=== PATIENT | female | born 1960 | race Caucasian/White ===

== ENCOUNTER 2017-09-06 12:51 | Emergency (ER) | payer OTHER | END 2017-09-06 15:30 | disposition home or self-care (01) | LOC: FTE 12:51 | DX: M25.561 Pain in right knee (principal); I10 Essential (primary) hypertension; Z98.61 Coronary angioplasty status | CPT/HCPCS: 73562; 99283-25 ==

== ENCOUNTER 2018-05-21 17:09 | Observation (INO) | payer OTHER ==
[2018-05-21 21:08] LABS: ADD MAN DIFF? NO
[2018-05-21 21:12] LABS: WHITE BLOOD COUNT 8.9 10^3/ul (4.8-10.8)
[2018-05-21 21:12] LABS: BASOPHILS % 0.3 % (0.0-2.0); EOSINOPHILS # 0.1 10^3/ul (0.0-0.5); EOSINOPHILS % 0.8 % (0.0-7.0); HEMATOCRIT 39.4 % (37.0-47.0); HEMOGLOBIN 13.5 g/dl (12.0-16.0); LYMPHOCYTES # 2.8 10^3/ul (0.8-2.9); LYMPHOCYTES % 31.7 % (15.0-51.0); MEAN CORPUSCULAR HEMOGLOBIN 29.9 pg (29.0-33.0); MEAN CORPUSCULAR HGB CONC 34.3 g/dl (32.0-37.0); MEAN CORPUSCULAR VOLUME 87.2 fl (82.0-101.0); MEAN PLATELET VOLUME 10.1 fl (7.4-10.4); MONOCYTE # 0.4 10^3/ul (0.3-0.9); MONOCYTES % 4.7 % (0.0-11.0); NEUTROPHIL # 5.5 10^3/ul (1.6-7.5); NEUTROPHILS % 62.2 % (39.0-77.0); PLATELET COUNT 274 10^3/UL (140-415); RED BLOOD COUNT 4.52 10^6/ul (4.20-5.40)
[2018-05-21 21:33] LABS: ANION GAP 15 (5-13); BLOOD UREA NITROGEN 11 mg/dl (7-20); CALCIUM 9.7 mg/dl (8.4-10.2); CARBON DIOXIDE 26 mmol/L (21-31); CHLORIDE 100 mmol/L (97-110); CREATININE 0.84 mg/dl (0.44-1.00); Estimated GFR > 60 mL/min (>60); GLUCOSE 96 mg/dl (70-220); POTASSIUM 3.7 mmol/L (3.5-5.1); SODIUM 141 mmol/L (135-144)
[2018-05-21 21:45] LABS: TROPONIN-I < 0.012 ng/ml (0.000-0.120)
[2018-05-21] MEDS: ASPIRIN 325 MG TAB PO (22:11)
[2018-05-21] MEDS: NITROGLYCERIN 2% 1 GM OINT PKT TD (22:12)
[2018-05-21] MEDS ORDERED: BISACODYL (EC) 5 MG TAB PO (22:30)
[2018-05-21] MEDS ORDERED: DOCUSATE SODIUM 100 MG CAP PO (22:30)
[2018-05-21] MEDS ORDERED: hydrALAzine 20 MG INJ IV (22:30)
[2018-05-21] MEDS ORDERED: NACL 0.9% 3 ML SYG IV (22:30)
[2018-05-21] MEDS ORDERED: NITROGLYCERIN (SL) 0.4 MG TAB SL (22:30)
[2018-05-21] MEDS ORDERED: morphine 2 MG INJ IV (22:30)
[2018-05-21] MEDS ORDERED: ONDANSETRON 4 MG INJ IV (22:30)
[2018-05-21] MEDS: ALPRAZOLAM 0.25 MG TAB PO (23:44)
[2018-05-22 03:19] LABS: ADD MAN DIFF? NO
[2018-05-22 03:22] LABS: BASOPHILS % 0.4 % (0.0-2.0); EOSINOPHILS # 0.1 10^3/ul (0.0-0.5); HEMATOCRIT 37.9 % (37.0-47.0); HEMOGLOBIN 12.5 g/dl (12.0-16.0); LYMPHOCYTES # 2.7 10^3/ul (0.8-2.9); LYMPHOCYTES % 29.3 % (15.0-51.0); MEAN CORPUSCULAR HEMOGLOBIN 29.6 pg (29.0-33.0); MEAN CORPUSCULAR VOLUME 89.6 fl (82.0-101.0); MEAN PLATELET VOLUME 9.7 fl (7.4-10.4); MONOCYTE # 0.5 10^3/ul (0.3-0.9); MONOCYTES % 5.4 % (0.0-11.0); NEUTROPHIL # 5.9 10^3/ul (1.6-7.5); NEUTROPHILS % 63.6 % (39.0-77.0); PLATELET COUNT 240 10^3/UL (140-415); RED BLOOD COUNT 4.23 10^6/ul (4.20-5.40); RED CELL DISTRIBUTION WIDTH 13.1 % (11.5-14.5)
[2018-05-22 03:22] LABS: WHITE BLOOD COUNT 9.3 10^3/ul (4.8-10.8)
[2018-05-22 03:30] LABS: HEMOGLOBIN A1C 5.9 % (0-5.9)
[2018-05-22 03:39] LABS: ALANINE AMINOTRANSFERASE 20 IU/L (13-69); ALBUMIN 4.1 g/dl (3.3-4.9); ALBUMIN/GLOBULIN RATIO 1.32; ALKALINE PHOSPHATASE 80 IU/L (42-121); ANION GAP 9 (5-13); ASPARTATE AMINO TRANSFERASE 23 IU/L (15-46); BILIRUBIN,INDIRECT 0.3 mg/dl (0-1.1); BILIRUBIN,TOTAL 0.3 mg/dl (0.2-1.3); BLOOD UREA NITROGEN 11 mg/dl (7-20); CALCIUM 9.7 mg/dl (8.4-10.2); CARBON DIOXIDE 36 mmol/L (21-31); CHLORIDE 100 mmol/L (97-110); CHOL/HDL RATIO 3.8 RATIO; CHOLESTEROL 208 mg/dl (100-200); CREATINE KINASE 51 IU/L (23-200); CREATININE 0.91 mg/dl (0.44-1.00); Estimated GFR > 60 mL/min (>60); GLUCOSE 138 mg/dl (70-220); HDL CHOLESTEROL 54 mg/dl (37-92); LDL CHOLESTEROL,CALCULATED 127 mg/dl; MAGNESIUM 2.2 mg/dl (1.7-2.5); POTASSIUM 3.2 mmol/L (3.5-5.1); SODIUM 145 mmol/L (135-144); TOTAL PROTEIN 7.2 g/dl (6.1-8.1); TRIGLYCERIDES 136 mg/dl (0-149)
[2018-05-22 03:50] LABS: CK INDEX 1.1; CK-MB 0.54 ng/ml (0.0-2.4); TROPONIN-I < 0.012 ng/ml (0.000-0.120)
[2018-05-22] MEDS: ACETAMINOPHEN 325 MG TAB PO (06:25)
[2018-05-22] MEDS ORDERED: ASPIRIN 81 MG TAB PO (09:00)
[2018-05-22] MEDS: CHLORTHALIDONE 25 MG TAB PO (09:57)
[2018-05-22] MEDS: ARIPIPRAZOLE 5 MG TAB PO (09:57)
[2018-05-22] MEDS: ASPIRIN (EC) 81 MG TAB PO (09:57)
[2018-05-22 11:14] LABS: CK INDEX 0.8; CK-MB 0.45 ng/ml (0.0-2.4); CREATINE KINASE 56 IU/L (23-200); TROPONIN-I < 0.012 ng/ml (0.000-0.120)
[2018-05-22 12:21] LABS: B-TYPE NATRIURETIC PEPTIDE < 11 PG/ML (0-125)
[2018-05-22] MEDS: POTASSIUM CHLORIDE (SR) 20 MEQ TAB PO (13:20)
[2018-05-22] MEDS: SUMATRIPTAN 6 MG/0.5 ML INJ SC (14:08)
[2018-05-22] MEDS ORDERED: ATORVASTATIN 10 MG TAB PO (21:00)
[2018-05-22] MEDS ORDERED: NON-FORMULARY/PATIENT OWN MED (Simvastatin* (Zocor*) 20 MG) PO (21:00)
== END 2018-05-22 18:07 | disposition home or self-care (01) ==
LOC: TEL 22:28 → E/R 17:09
DX: R07.89 Other chest pain (principal); I10 Essential (primary) hypertension; E78.5 Hyperlipidemia, unspecified; R73.03 Prediabetes; F32.9 Major depressive disorder, single episode, unspecified; E66.9 Obesity, unspecified; Z68.37 Body mass index [BMI] 37.0-37.9, adult; G43.909 Migraine, unspecified, not intractable, without status migrainosus; Z79.82 Long term (current) use of aspirin
CPT/HCPCS: 36415; 71045; 80048; 80053; 80061; 82550; 82553; 83036; 83735; 83880; 84443; 84484; 85025; 93005; 93306; 99285-25; G0378

== ENCOUNTER 2018-08-12 14:07 | Emergency (ER) | payer OTHER | END 2018-08-12 14:49 | disposition home or self-care (01) | LOC: FTE 14:49 | DX: H92.01 Otalgia, right ear (principal); K08.89 Other specified disorders of teeth and supporting structures; I10 Essential (primary) hypertension; Z79.82 Long term (current) use of aspirin | CPT/HCPCS: 99283; Z7502 ==

== ENCOUNTER 2018-08-16 07:19 | Emergency (ER) | payer OTHER | END 2018-08-16 08:42 | disposition home or self-care (01) | LOC: FTE 08:42 | DX: H66.91 Otitis media, unspecified, right ear (principal); Z79.82 Long term (current) use of aspirin | CPT/HCPCS: 99283 ==

== ENCOUNTER 2018-08-31 08:55 | Emergency (ER) | payer OTHER ==
[2018-08-31] MEDS: SOD CHLORIDE 0.9% 500 ML IV (09:42)
[2018-08-31] MEDS: KETOROLAC 30 MG INJ IV (09:42)
== END 2018-08-31 10:42 | disposition home or self-care (01) ==
LOC: FTE 08:55
DX: R51 Headache (principal); I10 Essential (primary) hypertension; Z79.82 Long term (current) use of aspirin; Z98.61 Coronary angioplasty status
CPT/HCPCS: 96361; 96374; 99284-25